=== PATIENT | male | born 1985 | race Caucasian/White ===

== ENCOUNTER 2020-04-22 18:47 | Emergency (ER) | payer BC ==
[~2020-04-22] VITALS: Ht 190.5 cm; Wt 138.6 kg
[2020-04-22] MEDS ORDERED: CIPRO 500MG TA500 MG PO (19:29)
[2020-04-22 20:35] VITALS: BP 112/65; PULSE 78; TEMP 98
== END 2020-04-22 20:37 | disposition home or self-care (01) ==
LOC: COL.ER 18:47
DX: S60.352A Superficial foreign body of left thumb, initial encounter (principal); Z23 Encounter for immunization; W45.8XXA Other foreign body or object entering through skin, initial encounter